=== PATIENT | male | born 1955 | race Caucasian/White ===

== ENCOUNTER → 2018-02-26 | Outpatient (CLI) | payer MEDICARE ==
[~2018-02-26] MED LIST: ALTACE10 M1 PO; ANALGESIC325 MG PO; CELEXA 20 MG TA20 M1 PO; CELEXA40 MG PO; COZAAR 25 MG TA25 M1 PO; DEPAKOTE 250MG250 M1 PO; DIPYRIDAMOLE 5050 M1 PO; IRON325 PO; KEPPRA 500 MG500 M2 PO; LEVOTHYROXIN0.025 MG PO; LO-DOSE ASPIRIN81 M1 PO; LOSARTAN POTAS100 MG PO; METOPROLOL 50 M50 M1 PO; MICRO-K 10 MEQ10 MEQ OR; MS CONTIN15 MG PO; OMEPRAZOLE20 MG PO; RANITIDINE HCL300 M1 PO; SIMVASTATIN40 MG PO; VITAMIN D1000 UNI1 PO; [UNRECOGNIZED DRUG - OTHER]
== END ==
LOC: M.MRI 10:50
DX: M51.36 Other intervertebral disc degeneration, lumbar region (principal); M54.16 Radiculopathy, lumbar region; M81.0 Age-related osteoporosis without current pathological fracture